=== PATIENT | female | born 1970 | race Caucasian/White ===

== ENCOUNTER 2022-03-26 10:17 | Day surgery (SDC) | payer OTHER ==
[2022-03-24 10:58] VITALS: BMI 29.2
[2022-03-26] MEDS ORDERED: LIDOCAINE HCL/PF 2% SDV 5ML VIAL ONE (10:38)
[2022-03-26] MEDS ORDERED: PROPOFOL 80 ML ONE (10:39)
[2022-03-26 11:45] VITALS: TEMP 97
[2022-03-26 12:16] VITALS: BP 101/66; PULSE 74; RESP 19
== END 2022-03-26 12:16 | disposition home or self-care (01) ==
LOC: FASU-ENDO 10:17
PROVIDERS: ATTEND Internal Medicine Gastroenterology
PROC: 0DJD8ZZ Inspection of Lower Intestinal Tract, Via Natural or Artificial Opening Endoscopic (ICD-10-PCS; principal; 2022-03-26 11:06)
DX: Z12.11 Encounter for screening for malignant neoplasm of colon (principal); K57.30 Diverticulosis of large intestine without perforation or abscess without bleeding
CPT/HCPCS: 81025